=== PATIENT | female | born 1995 | race Caucasian/White ===

== ENCOUNTER 2017-05-05 21:17 | Emergency (ER) | payer MEDICAID, OTHER ==
[2017-05-05] MEDS ORDERED: TETRACAINE 0.5% STERI-UNIT SOL OP STA (21:58)
[2017-05-05] MEDS ORDERED: Cortisporin Eye Drops OP SCH (22:00)
[2017-05-05] MEDS ORDERED: TETRACAINE 0.5% STERI-UNIT SOL OP ONE (22:01)
[2017-05-05] MEDS ORDERED: Cortisporin Eye Drops OP ONE (22:01)
--- NOTE | 2017-05-05 22:06 | ERPHSYRPT ---
- History of Present Illness Time Seen by Provider: 05/05/17 22:01 Source: patient Exam Limitations: no limitations Patient Subjective Stated Complaint: pt states she cant guevara her contact out of her rt eye. Triage Nursing Assessment: pt alert and orieneted, asnwers questions approp. respirations nonlabored with lungs cta. redness and tearing noted to rt eye Physician History: pt states she cant guevara her contact out of her rt eye. Timing/Duration: today Location: right eye Severity: mild Apparent Injury: no Associated Symptoms: redness, foreign body sensation, No decreased vision, No blurred vision Visual Assistive Devices: Contacts Chemical Exposure: No Trauma: No Welding Arc/Tanning Bed Exposure: No Allergies/Adverse Reactions: codeine Allergy (Mild, Verified 11/02/13 18:49) Home Medications: Albuterol Sulfate [Proventil Hfa] 11/02/13 [History] Hx Tetanus, Diphtheria Vaccination/Date Given: Yes Hx Influenza Vaccination/Date Given: No Hx Pneumococcal Vaccination/Date Given: No Immunizations Up to Date: Yes - Review of Systems Constitutional: No Symptoms Eyes: Eye Pain, Eye Redness, Itchy, Tearing, Foreign Body Sensation Ears, Nose, & Throat: No Symptoms - Past Medical History Pertinent Past Medical History: Yes Neurological History: No Pertinent History ENT History: No Pertinent History Cardiac History: No Pertinent History Respiratory History: Asthma Endocrine Medical History: No Pertinent History Musculoskeletal History: No Pertinent History GI Medical History: No Pertinent History History: No Pertinent History Psycho-Social History: Anxiety, Depression Female Reproductive Disorders: No Pertinent History Other Medical History: Pt supposed to be taking Zoloft and Lamictal but has not taken for "a long time" per pt statement - Past Surgical History Past Surgical History: Yes Musculoskeletal: Orthopedic Surgery Other Surgical History: PELVIC CYST - Social History Smoking Status: Current every day smoker How long have you smoked: 5 Exposure to second hand smoke: No Drug Use: none Patient Lives Alone: No - Female History Hx Last Menstrual Period: approx 1 month Hx Now: No - Nursing Vital Signs Nursing Vital Signs: Initial Vital Signs Temperature 98.6 F 05/05/17 21:47 Pulse Rate 106 H 05/05/17 21:47 Respiratory Rate 16 05/05/17 21:47 Blood Pressure 123/96 05/05/17 21:47 O2 Sat by Pulse Oximetry 99 05/05/17 21:47 Pain Scale Pain Intensity 5 - Physical Exam General Appearance: no apparent distress Eye Exam: right eye: conjunctival inflammation Ears, Nose, Throat Exam: normal ENT inspection SpO2: 99 Oxygen Delivery: Room Air - Course Nursing assessment & vital signs reviewed: Yes Ordered Tests: Medication Summary Generic Name Dose Route Start Last Admin Trade Name Freq PRN Reason Stop Dose Admin Neomycin/Polymyxin/Hydrocortisone 2 ml 05/05/17 22:00 05/05/17 22:03 Cortisporin Eye Drops OP 06/04/17 21:59 2 ml QID CARI Administration Discontinued Medications Generic Name Dose Route Start Last Admin Trade Name Freq PRN Reason Stop Dose Admin Tetracaine HCl 4 ml 05/05/17 21:58 05/05/17 22:02 Tetracaine 0.5% Steri-Unit Vanita OP 05/05/17 21:59 4 ml STAT STA Administration - Progress Progress: improved Progress Note: 05/05/17 22:02 contact lense removed, cortisporin eye drops instilled in right eye, rest of drops bottle given to patient to continue drops 2 drops in right eye every 6 hours for 5 days, advised not to wear contacts for 2-3 days Counseled pt/family regarding: diagnosis, need for follow-up - Departure Time of Disposition: 22:05 Departure Disposition: Home Clinical Impression: Contact lens overwear of right eye Condition: Stable Critical Care Time: No Referrals: SIMA FLOR MD [Primary Care Provider] - Instructions: Get a Foreign Body Out of Your Eye, Eye Pain Additional Instructions: use eye drops as prescribed, follow up with eye eye doctor on Sunday if no improvement
[2017-05-05 22:16] VITALS: BP 153/91; PULSE 92; O2SAT 98
== END 2017-05-05 22:54 | disposition home or self-care (01) ==
LOC: ED 21:17
DX: T15.91XA Foreign body on external eye, part unspecified, right eye, initial encounter (principal); H02.813 Retained foreign body in right eye, unspecified eyelid; H10.89 Other conjunctivitis
CPT/HCPCS: 99283; A9270-GY

== ENCOUNTER 2018-07-02 22:13 | Emergency (ER) | payer OTHER | END 2018-07-02 22:27 | disposition left against medical advice (07) | LOC: ED 22:13 ==

== ENCOUNTER 2019-02-05 00:27 | Emergency (ER) | payer MEDICAID, OTHER ==
[2019-02-05 00:41] VITALS: BP 144/90; PULSE 82; O2SAT 107
[2019-02-05] MEDS ORDERED: AMOXIL 500 MG PO ONE (00:54)
--- NOTE | 2019-02-05 00:54 | ERPHSYRPT ---
- History of Present Illness Time Seen by Provider: 02/05/19 00:40 Source: patient, family Patient Subjective Stated Complaint: pt states she has been having pain in her rt upper jaw. has had pain for last week intermitently Triage Nursing Assessment: pt alert and oriented, answers questions approp. pt ambulatory with steady gait noted, respirations nonlabored with lungs cta. broken tooth to posterior rt upper jaw with swelling noted in gum. Physician History: 23 y/o white female presents with right upper toothache for one week. pt only wants nonnarcotic. pt took tylenol approx 30 minutes prior to arrival. Timing/Duration: gradual onset Severity: moderate ENT Location: dental Prearrival Treatment: over the counter meds Associated Symptoms: tooth pain Allergies/Adverse Reactions: codeine Allergy (Mild, Verified 02/05/19 00:43) Hx Tetanus, Diphtheria Vaccination/Date Given: Yes Hx Influenza Vaccination/Date Given: No Hx Pneumococcal Vaccination/Date Given: No Immunizations Up to Date: Yes - Review of Systems Constitutional: No Symptoms Eyes: No Symptoms Ears, Nose, & Throat: Other (right upper molar pain) Respiratory: No Symptoms Cardiac: No Symptoms Abdominal/Gastrointestinal: No Symptoms Genitourinary Symptoms: No Symptoms Musculoskeletal: No Symptoms Skin: No Symptoms Neurological: No Symptoms Psychological: No Symptoms Endocrine: No Symptoms Hematologic/Lymphatic: No Symptoms Immunological/Allergic: No Symptoms All Other Systems: Reviewed and Negative - Past Medical History Pertinent Past Medical History: Yes Neurological History: No Pertinent History ENT History: No Pertinent History Cardiac History: No Pertinent History Respiratory History: Asthma Endocrine Medical History: No Pertinent History Musculoskeletal History: No Pertinent History GI Medical History: No Pertinent History History: No Pertinent History Psycho-Social History: Anxiety, Depression Female Reproductive Disorders: No Pertinent History Other Medical History: Pt supposed to be taking Zoloft and Lamictal but has not taken for "a long time" per pt statement - Past Surgical History Past Surgical History: Yes Musculoskeletal: Orthopedic Surgery Other Surgical History: PELVIC CYST - Social History Smoking Status: Current every day smoker How long have you smoked: 6 yrs Exposure to second hand smoke: No Drug Use: none Patient Lives Alone: Yes - Female History Hx Last Menstrual Period: today Hx Now: No - Nursing Vital Signs Nursing Vital Signs: Initial Vital Signs Temperature 98.4 F 02/05/19 00:30 Pulse Rate 82 02/05/19 00:30 Respiratory Rate 18 02/05/19 00:30 Blood Pressure 144/90 02/05/19 00:30 O2 Sat by Pulse Oximetry 107 H 02/05/19 00:30 Pain Scale Pain Intensity 9 - Physical Exam General Appearance: no apparent distress, alert, anxiety Eye Exam: bilateral eye: normal inspection, PERRL, EOMI Ear Exam: bilateral ear: auricle normal Nasal Exam: normal inspection Throat Exam: normal, pharynx normal, dental tenderness (right upper molar pain) Neck Exam: normal inspection, non-tender, supple, full range of motion Cardiovascular/Respiratory Exam: chest non-tender Abdominal Exam: non-tender Neurologic Exam: alert, oriented x 3, cooperative, 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 follow up with dentist for definitive care Prescriptions: Amoxicillin 500 mg Cap [Amoxil 500 mg] 500 mg PO TID #30 capsule Tramadol HCl 50 mg [Ultram 50 mg] 50 mg PO TID PRN #15 tablet PRN Reason: Moderate Pain
[2019-02-05] MEDS ORDERED: ULTRAM 50 MG PO ONE (00:55)
[2019-02-05] MEDS ORDERED: ULTRAM 50 MG ONE (00:59)
[2019-02-05] MEDS ORDERED: AMOXIL 500 MG ONE (00:59)
== END 2019-02-05 01:30 | disposition home or self-care (01) ==
LOC: ED 00:27
DX: K08.89 Other specified disorders of teeth and supporting structures (principal); K04.7 Periapical abscess without sinus
CPT/HCPCS: 99283; A9270-GY

== ENCOUNTER 2020-06-23 10:57 | Emergency (ER) | payer OTHER ==
[2020-06-23] MEDS ORDERED: Sodium Chloride 0.9% 1000 ML 1,000 ML IV STA (11:29)
[2020-06-23] MEDS ORDERED: Zofran 4 MG/2 ML VIAL IV ONE (11:29)
[2020-06-23] MEDS ORDERED: Zofran 4 MG/2 ML VIAL ONE (11:34)
[2020-06-23] MEDS ORDERED: Sodium Chloride 0.9% 1000 ML 1,000 ML ONE (11:34)
[2020-06-23 11:52] LABS: Appearance SLIGHTLY CLOUDY (CLEAR); Bacteria RARE /HPF (NEGATIVE); Bilirubin NEGATIVE (NEGATIVE); Blood NEGATIVE Ery/ul (0-5); Epithelial Cells RARE /HPF (FEW); Glucose NEGATIVE (NEGATIVE); Ketones MODERATE (NEGATIVE); Leukocyte Esterase NEGATIVE (NEGATIVE); Mucus SLIGHT /HPF (NEGATIVE); Nitrite NEGATIVE (NEGATIVE); Protein,Urine Dip 30 (Negative); Specific Gravity 1.021 (1.005-1.025); Urobilinogen NEGATIVE mg/dL (0-1)
[2020-06-23 12:00] LABS: ALBUMIN 4.5 g/dL (3.5-5.0); ALKALINE PHOSPHATASE 64 U/L (38-126); BLOOD UREA NITROGEN 17 mg/dL (7-17); CHLORIDE 106 mmol/L (98-107); Calcium 9.4 mg/dL (8.4-10.2); Carbon Dioxide 19 mmol/L (22-30); Creatinine 1 0.69 mg/dL (0.52-1.04); EST GLOMERULAR FILTRATION RATE > 60.0 ML/MIN; Glucose 83 mg/dL (74-106); LIPASE 48 U/L (23-300); Potassium 3.7 mmol/L (3.5-5.1); SGOT/AST 20 U/L (14-36); SGPT/ALT 9 U/L (0-35); SODIUM 137 mmol/L (137-145)
[2020-06-23 12:12] LABS: Absolute Neutrophil Ct (ANC) 7.04 (1.4-6.9); BASOPHIL % 0.1 % (0.0-0.4); Basophil (Absolute #) 0.01 (0-0.4); Eosinophil % 0.4 % (0.00-5.0); Eosinophil (Absolute #) 0.03 (0-0.5); Hematocrit 40.8 % (35-47); Hemoglobin 12.6 gm/dl (12.0-16.0); Lymphocyte (Absolute #) 0.84 (1.0-4.6); Lymphocytes % 10.2 % (24.0-44.0); Mean Cell Volume 98.1 fl (78-100); Mean Corpuscular Hemoglobin 30.3 pg (26-32); Mean Corpuscular Hgb Concent. 30.9 g/dl (32-36); Mean Platelet Volume 10.2 fl (7.5-11.0); Monocyte (Absolute #) 0.33 (0.0-1.3); Neutrophil % 85.3 % (36.0-66.0); Platelet Count 223 K/mm3 (150-450); Red Blood Count 4.16 M/mm3 (4.1-5.4); White Blood Count 8.3 K/mm3 (4.0-10.5)
--- NOTE | 2020-06-23 12:37 | XRAY ---
Indication: Nausea and vomiting. Comparison: Chest exam February 03, 2013. 2 view abdomen nonacute and nonobstructed. Solid organs and osseous structures unremarkable. Single PA chest again demonstrates normal heart and lungs. Bony thorax intact with new minimal double curvature scoliosis. Impression: Negative abdomen. Normal 1 view chest. New scoliosis.
[2020-06-23 12:42] VITALS: BP 101/70
--- NOTE | 2020-06-23 13:02 | ERPHSYRPT ---
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 States got all teeth pulled on Sunday r/t decay for dentures. Pt mouth appears to be healing appropriately, no noted active bleeding or signs of infection. States pain in mouth is minimal at 4/10 scale, managed by OTC tylenol. Started clindamycin yesterday, has never taken that abx before she states. Has had nausea all day and a little mild abdominal cramping early. Abd is soft and nontender at this time. Denies diarrhea. Skin is pink, warm, and dry. Respirations unlabored. Able to ambulate without difficulty. LMP 06/14/20. Physician History: 25 years old female presented in the ER with chief complaint of thoughts of nonprojectile, nonbilious vomiting since morning. Patient reports she had a tooth extraction done few days ago and is been taking clindamycin. She has been feeling nauseated since yesterday and started vomiting this morning. No abdominal pain. No fever or chills reported. Because of repeated vomiting she is feeling fatigued tired and dehydrated. Timing/Duration: today, gradual onset, worse Severity: moderate Associated Symptoms: nausea, vomiting, No abdominal pain, No shortness of breath, No heartburn, No cough, No chills, No chest pain, No fever, No malaise, No syncope Allergies/Adverse Reactions: codeine Allergy (Mild, Verified 06/23/20 11:11) Home Medications: Clindamycin HCl 500 mg PO DAILY 06/23/20 [History] Hx Tetanus, Diphtheria Vaccination/Date Given: No Hx Influenza Vaccination/Date Given: Yes Hx Pneumococcal Vaccination/Date Given: No Immunizations Up to Date: Yes Travel Risk - International Travel Have you traveled outside of the country in past 3 weeks: No - Coronavirus Screening Are you exhibiting any of the following symptoms?: No Close contact with a COVID-19 positive Pt in past 14-21 Days: No - Review of Systems Constitutional: Fatigue, Weakness Eyes: No Symptoms Ears, Nose, & Throat: No Symptoms Respiratory: No Symptoms Cardiac: No Symptoms Abdominal/Gastrointestinal: Nausea, Vomiting Genitourinary Symptoms: No Symptoms Musculoskeletal: No Symptoms Skin: No Symptoms Neurological: No Symptoms Psychological: No Symptoms Endocrine: No Symptoms Hematologic/Lymphatic: No Symptoms Immunological/Allergic: No Symptoms - Past Medical History Pertinent Past Medical History: Yes Neurological History: No Pertinent History ENT History: No Pertinent History Cardiac History: No Pertinent History Respiratory History: Asthma Endocrine Medical History: No Pertinent History Musculoskeletal History: No Pertinent History GI Medical History: No Pertinent History History: No Pertinent History Psycho-Social History: Anxiety Female Reproductive Disorders: No Pertinent History Other Medical History: Pt supposed to be taking Zoloft and Lamictal but has not taken for "a long time" per pt statement - Past Surgical History Past Surgical History: Yes Musculoskeletal: Orthopedic Surgery Other Surgical History: PELVIC CYST - Social History Smoking Status: Current every day smoker How long have you smoked: 6 yrs Exposure to second hand smoke: No Drug Use: none Patient Lives Alone: No - Female History Hx Last Menstrual Period: 06/14/2020 Hx Now: No (unkn) - Nursing Vital Signs Nursing Vital Signs: Initial Vital Signs Temperature 97.1 F 06/23/20 11:04 Pulse Rate 72 06/23/20 11:04 Respiratory Rate 18 06/23/20 11:04 Blood Pressure 109/71 06/23/20 11:04 O2 Sat by Pulse Oximetry 100 06/23/20 11:04 Pain Scale Pain Intensity 0 - Physical Exam General Appearance: no apparent distress Eye Exam: PERRL/EOMI Ears, Nose, Throat Exam: normal ENT inspection, TMs normal, pharynx normal Neck Exam: normal inspection, non-tender, supple, full range of motion Respiratory Exam: normal breath sounds, lungs clear Cardiovascular Exam: regular rate/rhythm, normal heart sounds Gastrointestinal/Abdomen Exam: soft, normal bowel sounds, No tenderness, No distention, No guarding Back Exam: normal inspection, normal range of motion Extremity Exam: normal inspection, normal range of motion Neurologic Exam: alert, oriented x 3, cooperative Skin Exam: normal color SpO2 Interpretation: normal SpO2: 100 O2 Delivery: Room Air Ordered Tests: Active Orders 24 hr Category Date Time Status IV Insertion STAT Care 06/23/20 11:29 Active NPO (ED) STAT Care 06/23/20 11:29 Active OBSTR/ACUTE ABDOMEN SERIES Stat Exams 06/23/20 11:29 Completed CBC W DIFF Stat Lab 06/23/20 11:47 Completed CMP Stat Lab 06/23/20 11:47 Completed HCG,QUALITATIVE URINE Stat Lab 06/23/20 11:47 Completed LIPASE Stat Lab 06/23/20 11:47 Completed UA W/RFX UR CULTURE Stat Lab 06/23/20 11:47 Completed Medication Summary Discontinued Medications Generic Name Dose Route Start Last Admin Trade Name Alicia PRN Reason Stop Dose Admin Sodium Chloride 1,000 mls @ 999 mls/hr 06/23/20 11:29 06/23/20 12:56 Sodium Chloride 0.9% 1000 Ml IV 06/23/20 12:29 Infused .Q1H1M STA Infusion Sodium Chloride Confirm 06/23/20 11:34 Sodium Chloride 0.9% 1000 Ml Administered 06/23/20 11:35 Dose 1,000 mls @ ud .ROUTE .STK-MED ONE Ondansetron HCl 4 mg 06/23/20 11:29 06/23/20 11:41 Zofran 4 Mg/2 Ml Vial IV 06/23/20 11:30 4 mg STAT ONE Administration Ondansetron HCl Confirm 06/23/20 11:34 Zofran 4 Mg/2 Ml Vial Administered 06/23/20 11:35 Dose 4 mg .ROUTE .STK-MED ONE Lab/Rad Data: Laboratory Result Diagrams 06/23/20 11:47 06/23/20 11:47 Laboratory Results 06/23/20 06/23/20 06/23/20 Range/Units 11:47 11:47 11:47 WBC 8.3 (4.0-10.5) K/mm3 RBC 4.16 (4.1-5.4) M/mm3 Hgb 12.6 (12.0-16.0) gm/dl Hct 40.8 (35-47) % MCV 98.1 (78-100) fl MCH 30.3 (26-32) pg MCHC 30.9 L (32-36) g/dl RDW 13.0 (11.5-14.0) % Plt Count 223 (150-450) K/mm3 MPV 10.2 (7.5-11.0) fl Gran % 85.3 H (36.0-66.0) % Eos # (Auto) 0.03 (0-0.5) Absolute Lymphs (auto) 0.84 L (1.0-4.6) Absolute Monos (auto) 0.33 (0.0-1.3) Lymphocytes % 10.2 L (24.0-44.0) % Monocytes % 4.0 (0.0-12.0) % Eosinophils % 0.4 (0.00-5.0) % Basophils % 0.1 (0.0-0.4) % Absolute Granulocytes 7.04 H (1.4-6.9) Basophils # 0.01 (0-0.4) Sodium 137 (137-145) mmol/L Potassium 3.7 (3.5-5.1) mmol/L Chloride 106 (98-107) mmol/L Carbon Dioxide 19 L (22-30) mmol/L Anion Gap 16.0 H (5-15) MEQ/L BUN 17 (7-17) mg/dL Creatinine 0.69 (0.52-1.04) mg/dL Estimated GFR > 60.0 ML/MIN Glucose 83 (74-106) mg/dL Calcium 9.4 (8.4-10.2) mg/dL Total Bilirubin 0.60 (0.2-1.3) mg/dL AST 20 (14-36) U/L ALT 9 (0-35) U/L Alkaline Phosphatase 64 (38-126) U/L Serum Total Protein 7.0 (6.3-8.2) g/dL Albumin 4.5 (3.5-5.0) g/dL Lipase 48 (23-300) U/L Urine Color (YELLOW) Urine Appearance (CLEAR) Urine pH (5-6) Ur Specific [place] (1.005-1.025) Urine Protein (Negative) Urine Ketones (NEGATIVE) Urine Blood (0-5) Ja/ul Urine Nitrite (NEGATIVE) Urine Bilirubin (NEGATIVE) Urine Urobilinogen (0-1) mg/dL Ur Leukocyte Esterase (NEGATIVE) Urine WBC (Auto) (0-5) /HPF Urine RBC (Auto) (0-2) /HPF U Epithel Cells (Auto) (FEW) /HPF Urine Bacteria (Auto) (NEGATIVE) /HPF Urine Mucus (Auto) (NEGATIVE) /HPF Urine Culture Reflexed (NO) Urine Glucose (NEGATIVE) mg/dL Urine HCG, Qual NEGATIVE (Negative) 06/23/20 Range/Units 11:47 WBC (4.0-10.5) K/mm3 RBC (4.1-5.4) M/mm3 Hgb (12.0-16.0) gm/dl Hct (35-47) % MCV (78-100) fl MCH (26-32) pg MCHC (32-36) g/dl RDW (11.5-14.0) % Plt Count (150-450) K/mm3 MPV (7.5-11.0) fl Gran % (36.0-66.0) % Eos # (Auto) (0-0.5) Absolute Lymphs (auto) (1.0-4.6) Absolute Monos (auto) (0.0-1.3) Lymphocytes % (24.0-44.0) % Monocytes % (0.0-12.0) % Eosinophils % (0.00-5.0) % Basophils % (0.0-0.4) % Absolute Granulocytes (1.4-6.9) Basophils # (0-0.4) Sodium (137-145) mmol/L Potassium (3.5-5.1) mmol/L Chloride (98-107) mmol/L Carbon Dioxide (22-30) mmol/L Anion Gap (5-15) MEQ/L BUN (7-17) mg/dL Creatinine (0.52-1.04) mg/dL Estimated GFR ML/MIN Glucose (74-106) mg/dL Calcium (8.4-10.2) mg/dL Total Bilirubin (0.2-1.3) mg/dL AST (14-36) U/L ALT (0-35) U/L Alkaline Phosphatase (38-126) U/L Serum Total Protein (6.3-8.2) g/dL Albumin (3.5-5.0) g/dL Lipase (23-300) U/L Urine Color YELLOW (YELLOW) Urine Appearance SLIGHTLY CLOUDY (CLEAR) Urine pH 5.0 (5-6) Ur Specific [place] 1.021 (1.005-1.025) Urine Protein 30 (Negative) Urine Ketones MODERATE (NEGATIVE) Urine Blood NEGATIVE (0-5) Ja/ul Urine Nitrite NEGATIVE (NEGATIVE) Urine Bilirubin NEGATIVE (NEGATIVE) Urine Urobilinogen NEGATIVE (0-1) mg/dL Ur Leukocyte Esterase NEGATIVE (NEGATIVE) Urine WBC (Auto) 3-5 (0-5) /HPF Urine RBC (Auto) NONE (0-2) /HPF U Epithel Cells (Auto) RARE (FEW) /HPF Urine Bacteria (Auto) RARE (NEGATIVE) /HPF Urine Mucus (Auto) SLIGHT (NEGATIVE) /HPF Urine Culture Reflexed NO (NO) Urine Glucose NEGATIVE (NEGATIVE) mg/dL Urine HCG, Qual (Negative) - Progress Progress: improved Progress Note: 06/23/20 13:11 She is given IV fluids along with Zofran, on reevaluation her nausea is improved and no vomiting while in the ER. She has normal white count, grossly unremarkable chemistries except for mild dehydration from repeated vomiting. No UTI. X-rays are negative. I believe her symptoms are secondary to clindamycin use. Recommended taking Zofran for nausea vomiting as needed and outpatient follow-up. Discussed signs symptoms of worsening needing return to ER which she seemed understanding. Stable for discharge. Counseled pt/family regarding: lab results, diagnosis, need for follow-up, rad results - Departure Departure Disposition: Home Clinical Impression: Nausea & vomiting Qualifiers: Vomiting type: unspecified Vomiting Intractability: non-intractable Qualified Code(s): R11.2 - Nausea with vomiting, unspecified Condition: Stable Critical Care Time: No Referrals: DOCTOR,NO FAMILY [Primary Care Provider] - SIMA FLOR MD [ACTIVE STAFF] - Follow Up with PCP/3 days Instructions: Nausea and Vomiting, Adult (DC) Additional Instructions: Drink plenty of fluids to keep yourself well-hydrated. Take Zofran as needed for nausea vomiting. Follow-up with primary care physician for reevaluation. Return to ER for intractable vomiting/abdominal pain/fever chills etc. Prescriptions: Ondansetron ODT 4 MG [Zofran Odt 4 mg] 4 mg PO Q6H PRN PRN #10 tab.rapdis PRN Reason: Vomiting
[2020-06-23 13:07] VITALS: PULSE 66
[2020-06-23 13:12] VITALS: O2SAT 100
== END 2020-06-23 13:22 | disposition home or self-care (01) ==
LOC: ED 10:57
DX: R11.2 Nausea with vomiting, unspecified (principal); R53.83 Other fatigue; E86.0 Dehydration; F17.210 Nicotine dependence, cigarettes, uncomplicated
CPT/HCPCS: 36415; 74022; 80053; 81001; 83690; 84703; 85025; 96360; 96374; 99284; J2405

== ENCOUNTER 2020-10-24 21:44 | Emergency (ER) | payer OTHER ==
[2020-10-24 22:02] VITALS: O2SAT 100
[2020-10-24] MEDS ORDERED: Rabavert 2.5 UNITS IM ONE (22:09)
[2020-10-24] MEDS ORDERED: Augmentin 875-125 Tablet PO ONE (22:09)
[2020-10-24] MEDS ORDERED: HYPERRAB 300 UNIT/ML 5 ML VIAL IM STA (22:27)
--- NOTE | 2020-10-24 22:33 | ERPHSYRPT ---
- History of Present Illness Time Seen by Provider: 10/24/20 21:50 Source: patient, family Exam Limitations: no limitations Patient Subjective Stated Complaint: Patient states " I was grabbing a baby racoon from the drainage pipe and the momshivam coon jumped up and bite me on the right leg." Triage Nursing Assessment: Patient arrived to ED and ambulated back to room without difficulty. Patient A/O times 4. Patient able to follow instructions without difficulty. Patient noted with 2 puncture wounds to anterior right lower extremity. Minimal amount of bleeding noted. No bruising or swelling noted at this time. Punture wounds clean. Patient states she doesn't really have any pain in leg at this time. + pedal pulse noted to right lower extremity. Patient denies any N/V. Physician History: 25 years old with up-to-date immunization presented in the ER with a chief complaint of raccoon bite left anterior leg after she tried to grab 1 of baby raccoon from drainage pipe and mother raccoon jumped and bit her. This happened prior to arrival. There was bleeding initially but stopped with applying pressure. She is complaining of minimal dull aching pain with palpation. No difficulty movements/ambulation. No injury anywhere else. Timing/Duration: today, sudden, improved Quality: painful Severity: mild Location: extremities Possible Causes: other Associated Symptoms: denies symptoms Allergies/Adverse Reactions: codeine Allergy (Mild, Verified 10/24/20 22:03) Rapid Heart Beat Hx Tetanus, Diphtheria Vaccination/Date Given: No Hx Influenza Vaccination/Date Given: No Hx Pneumococcal Vaccination/Date Given: No Immunizations Up to Date: Yes Travel Risk - International Travel Have you traveled outside of the country in past 3 weeks: No If Yes, where;: N - Coronavirus Screening Are you exhibiting any of the following symptoms?: No Close contact with a COVID-19 positive Pt in past 14-21 Days: No - Vaccine Status Have you recieved a Covid-19 vaccination: No - Review of Systems Constitutional: No Symptoms Eyes: No Symptoms Ears, Nose, & Throat: No Symptoms Respiratory: No Symptoms Cardiac: No Symptoms Abdominal/Gastrointestinal: No Symptoms Genitourinary Symptoms: No Symptoms Musculoskeletal: Injury Skin: Skin Lesions Neurological: No Symptoms Psychological: No Symptoms Endocrine: No Symptoms Hematologic/Lymphatic: No Symptoms Immunological/Allergic: No Symptoms - Past Medical History Pertinent Past Medical History: Yes Neurological History: No Pertinent History ENT History: No Pertinent History Cardiac History: No Pertinent History Respiratory History: Asthma Endocrine Medical History: No Pertinent History Musculoskeletal History: No Pertinent History GI Medical History: No Pertinent History History: No Pertinent History Psycho-Social History: Anxiety Female Reproductive Disorders: No Pertinent History Other Medical History: Currently in Recovery - Past Surgical History Past Surgical History: Yes Neuro Surgical History: No Pertinent History Cardiac: No Pertinent History Respiratory: No Pertinent History Gastrointestinal: No Pertinent History Genitourinary: No Pertinent History Musculoskeletal: Orthopedic Surgery Female Surgical History: No Pertinent History Other Surgical History: PELVIC CYST - Social History Smoking Status: Former smoker How long have you smoked: 6 yrs Exposure to second hand smoke: Yes Drug Use: none Patient Lives Alone: No - Female History Hx Last Menstrual Period: 09/30/20 Hx Now: No - Nursing Vital Signs Nursing Vital Signs: Initial Vital Signs Temperature 98.9 F 10/24/20 21:58 Pulse Rate 103 H 10/24/20 21:58 Respiratory Rate 20 10/24/20 21:58 Blood Pressure 124/78 10/24/20 21:58 O2 Sat by Pulse Oximetry 100 10/24/20 21:58 Pain Scale Pain Intensity 2 - Physical Exam General Appearance: no apparent distress, alert Eye Exam: eyes nml inspection Neck Exam: normal inspection, supple, full range of motion Respiratory Exam: normal breath sounds, lungs clear Cardiovascular Exam: regular rate/rhythm, normal heart sounds Extremity Exam: tenderness (2 bite johns right mid quinn area. Minimal tenderness around. No bony tenderness.) Neurologic Exam: alert, oriented x 3, cooperative Skin Exam: normal color SpO2 Interpretation: normal SpO2: 100 O2 Delivery: Room Air Ordered Tests: Medication Summary Discontinued Medications Generic Name Dose Route Start Last Admin Trade Name Freq PRN Reason Stop Dose Admin Amoxicillin/Clavulanate Potassium 875 mg 10/24/20 22:09 10/24/20 23:02 Augmentin 875-125 Tablet PO 10/24/20 22:10 875 mg STAT ONE Administration Amoxicillin/Clavulanate Potassium Confirm 10/24/20 22:41 Augmentin 875-125 Tablet Administered 10/24/20 22:42 Dose 875 mg .ROUTE .STK-MED ONE Rabies Immune Globulin 100 units 10/24/20 22:27 10/24/20 23:17 Hyperrab 300 Unit/Ml 5 Ml Vial IM 10/24/20 22:28 100 units ONCE STA Administration Rabies Vaccine 2.5 units 10/24/20 22:09 10/24/20 23:14 Rabavert 2.5 Units IM 10/24/20 22:10 2.5 units .ONCE ONE Administration - Progress Progress: improved Progress Note: 10/24/20 22:31 She is offered pain medicine but refused. Started on Augmentin, given RabAvert first dose of series injection and given HyperRAB 1000 units with half around wounds and half in the deltoid as well. Paperwork filled and will send to [facility]. Discussed signs symptoms of worsening infection needing return to ER which patient seems understanding. Counseled pt/family regarding: diagnosis, need for follow-up - Departure Departure Disposition: Home Clinical Impression: Bitten by raccoon, initial encounter Condition: Stable Critical Care Time: No Referrals: DOCTOR,NO FAMILY [Primary Care Provider] - SIMA FLOR MD [ACTIVE STAFF] - (1-2 days for reevaluation) Instructions: Animal Bites (DC), Wound Infection Additional Instructions: Keep it clean. Use Tylenol/ibuprofen as needed. Continue with antibiotics. You need 3 more injections of RabAvert/rabies vaccine on day 3//14 from today being the day 0, need to get them either from your primary care office are to make appointment written outpatient infusion center. Return to ER for worsening swelling redness discharge/fever chills etc. Prescriptions: Amoxicillin/Potassium Clav [Augmentin 875-125 Tablet] 875 mg PO BID 7 Days #14 tablet
[2020-10-24] MEDS ORDERED: Augmentin 875-125 Tablet ONE (22:41)
[2020-10-24 23:35] VITALS: BP 112/65; PULSE 88
== END 2020-10-24 23:25 | disposition home or self-care (01) ==
LOC: ED 21:44
DX: S81.851A Open bite, right lower leg, initial encounter (principal)
CPT/HCPCS: 90375; 90471; 90675; 96372; 99284; A9270-GY

== ENCOUNTER 2021-06-17 17:00 | Emergency (ER) | payer OTHER ==
[2021-06-17] MEDS ORDERED: Fluor-I-Strip/Ful-Flo OP ONE ×2 (17:18→17:25)
[2021-06-17] MEDS ORDERED: Eye-Stream Solution ONE (17:18)
[2021-06-17] MEDS ORDERED: TETRACAINE 0.5% STERI-UNIT SOL OP ONE (17:18)
[2021-06-17 17:23] VITALS: BP 110/60; PULSE 100; O2SAT 98
[2021-06-17] MEDS ORDERED: Eye-Stream Solution OP ONE (17:25)
[2021-06-17] MEDS ORDERED: TETRACAINE 0.5% STERI-UNIT SOL OP STA (17:25)
--- NOTE | 2021-06-17 17:31 | ERPHSYRPT ---
- History of Present Illness Time Seen by Provider: 06/17/21 17:26 Source: patient Exam Limitations: no limitations Patient Subjective Stated Complaint: pt here for pain and tearing to right eye since yesterday, pt does wear contacts Triage Nursing Assessment: pt alert, walked in, face mask given to pt, skin w/d/p. tearing to right ey Physician History: Patient is a 26-year-old white female who presents with a complaint of right eye pain. Yesterday she noted irritation in the eye and removed her contact lens from that eye this morning it was inflamed and painful especially with light. She has a history of previous episodes of corneal abrasion from her contacts. Timing/Duration: yesterday Location: right eye Severity: moderate Apparent Injury: no Associated Symptoms: pain, burning, sensitivity to light, redness Visual Assistive Devices: Contacts Chemical Exposure: No Trauma: No Welding Arc/Tanning Bed Exposure: No Allergies/Adverse Reactions: codeine Allergy (Mild, Verified 06/17/21 17:24) Rapid Heart Beat Hx Tetanus, Diphtheria Vaccination/Date Given: No Hx Influenza Vaccination/Date Given: No Hx Pneumococcal Vaccination/Date Given: No Immunizations Up to Date: Yes Travel Risk - International Travel Have you traveled outside of the country in past 3 weeks: No - Coronavirus Screening Are you exhibiting any of the following symptoms?: No Close contact with a COVID-19 positive Pt in past 14-21 Days: No - Vaccine Status Have you recieved a Covid-19 vaccination: No - Review of Systems Constitutional: No Fever, No Chills Eyes: Eye Pain, Eye Redness, Photophobia, Tearing, Foreign Body Sensation Ears, Nose, & Throat: No Symptoms Respiratory: No Cough, No Dyspnea Cardiac: No Chest Pain, No Edema, No Syncope Abdominal/Gastrointestinal: No Abdominal Pain, No Nausea, No Vomiting, No Diarrhea Genitourinary Symptoms: No Dysuria Musculoskeletal: No Back Pain, No Neck Pain Skin: No Rash Neurological: No Dizziness, No Focal Weakness, No Sensory Changes Psychological: No Symptoms Endocrine: No Symptoms All Other Systems: Reviewed and Negative - Past Medical History Pertinent Past Medical History: Yes Neurological History: No Pertinent History ENT History: No Pertinent History Cardiac History: No Pertinent History Respiratory History: Asthma Endocrine Medical History: No Pertinent History Musculoskeletal History: No Pertinent History GI Medical History: No Pertinent History History: No Pertinent History Psycho-Social History: Anxiety Female Reproductive Disorders: No Pertinent History Other Medical History: currently in recovery from drugs - Past Surgical History Past Surgical History: Yes Neuro Surgical History: No Pertinent History Cardiac: No Pertinent History Respiratory: No Pertinent History Gastrointestinal: No Pertinent History Genitourinary: No Pertinent History Musculoskeletal: Other Female Surgical History: No Pertinent History Other Surgical History: PELVIC CYST, had all teeth pulled - Social History Smoking Status: Never smoker How long have you smoked: 6 yrs Exposure to second hand smoke: No Drug Use: marijuana Patient Lives Alone: No - Female History Hx Last Menstrual Period: 3 days ago Hx Now: No - Nursing Vital Signs Nursing Vital Signs: Initial Vital Signs Temperature 98 F 06/17/21 17:14 Pulse Rate 100 H 06/17/21 17:14 Respiratory Rate 16 06/17/21 17:14 Blood Pressure 110/60 06/17/21 17:14 O2 Sat by Pulse Oximetry 98 06/17/21 17:14 Pain Scale Pain Intensity 6 - Physical Exam General Appearance: no apparent distress Eye Exam: right eye: conjunctival hemorrhage, conjunctival inflammation, corneal abrasion (Fluorescein staining indicates 2 small areas of corneal abrasion at 2:00 and 6:00) Ears, Nose, Throat Exam: normal ENT inspection Neck Exam: normal inspection Respiratory Exam: normal breath sounds Cardiovascular Exam: regular rate/rhythm Gastrointestinal Exam: soft, normal bowel sounds Extremity Exam: normal inspection, normal range of motion Neurologic: alert, oriented x 3 Skin Exam: normal color, warm, dry SpO2 Interpretation: normal SpO2: 98 O2 Delivery: Room Air Procedures - Eye Procedure Time of Procedure: 17:30 Tetracaine Drops Administered: Yes Eye Irrigated w/ Saline (ccs): 5 - Course Nursing assessment & vital signs reviewed: Yes Ordered Tests: Medication Summary Discontinued Medications Generic Name Dose Route Start Last Admin Trade Name Freq PRN Reason Stop Dose Admin Eye Irrigation Solution Confirm 06/17/21 17:18 Sodium/Potassium/Alan/Magnesium 30 Ml Eye Wash Administered 06/17/21 17:19 Dose 30 ml .ROUTE .STK-MED ONE Fluorescein Sodium Confirm 06/17/21 17:18 Fluorescein Sodium 1 Mg/Strip Strip Administered 06/17/21 17:19 Dose 1 mg OP .STK-MED ONE Tetracaine HCl Confirm 06/17/21 17:18 Tetracaine Hcl/Pf 4 Ml Bottle Administered 06/17/21 17:19 Dose 4 ml OP .STK-MED ONE - Progress Progress: improved - Departure Departure Disposition: Home Clinical Impression: Corneal abrasion due to contact lens Condition: Stable Critical Care Time: No Referrals: EKTA CANO NP [Primary Care Provider] - Follow up/PCP as directed Instructions: Corneal Abrasion (DC) Additional Instructions: Follow-up with your eye doctor in 2 to 3 days Prescriptions: Cyclopentolate HCl [Cyclogyl 1% EYE DROPS] 2 drops OP Q12H 3 Days #15 ml Tobramycin Sulfate Eye Oint [Tobrex OPHTH. OINTMENT] 3.5 gm OP Q6H 3 Days #3.5 gm
== END 2021-06-17 17:43 | disposition home or self-care (01) ==
LOC: ED 17:00
DX: H18.821 Corneal disorder due to contact lens, right eye (principal)
CPT/HCPCS: 66999; 99283; A9270-GY